=== PATIENT | female | born 1985 | race Caucasian/White ===

== ENCOUNTER 2016-12-12 03:10 | Emergency (ER) | payer BC, OTHER ==
[~2016-12-12] VITALS: Ht 167.6 cm; Wt 60.5 kg
[~2016-12-12 03:10] MED LIST: ACET1TAB40 PO; PANT40TA4 PO
[2016-12-12 03:13] VITALS: Ht 167.6 cm; Wt 60.5 kg
== END 2016-12-12 05:02 | disposition left against medical advice (07) ==
LOC: FTE 03:10
DX: Z53.21 Procedure and treatment not carried out due to patient leaving prior to being seen by health care provider (principal)